=== PATIENT | male | born 1955 | race Caucasian/White ===

== ENCOUNTER 2019-02-23 08:38 | Day surgery (SDC) | payer MEDICAID ==
[~2019-02-23] VITALS: Ht 177.8 cm; Wt 74.1 kg
[2019-02-23] VITALS (11 sets, daily range): BP systolic 101–150; BP diastolic 47–86
[2019-02-23] MEDS ORDERED: TIOT4MIS5 INH (09:05)
[2019-02-23] MEDS ORDERED: GABA-532 PO (09:05)
[2019-02-23] MEDS ORDERED: normal saline 1000ml 1,000 ML IV PRN (09:05)
[2019-02-23] MEDS ORDERED: AMIT-189 PO (09:05)
[2019-02-23] MEDS ORDERED: FOLI0.4T2 PO (09:05)
[2019-02-23 09:32] LABS: BASOPHILS # (AUTO) 0.1 X10'3 (0-0.2); BASOPHILS % (AUTO) 0.8 % (0-1); EOSINOPHILS % (AUTO) 0.2 % (0-6); HEMATOCRIT 50.6 % (42.0-52.0); HEMOGLOBIN 17.7 g/dl (14.0-17.9); LYMPHOCYTES # (AUTO) 1.6 X10'3 (1.1-4.8); MEAN CORPUSCULAR HEMOGLOBIN 35.1 PG (27.0-31.0); MEAN CORPUSCULAR HGB CONC 35.1 g/dL (33.0-36.5); MEAN PLATELET VOLUME 9.4 FL (7.4-10.4); MONOCYTES # (AUTO) 1.2 X10'3 (0-0.9); MONOCYTES % (AUTO) 8.4 % (2-12); NEUTROPHILS # (AUTO) 11.7 X10'3 (1.8-7.7); NEUTROPHILS % (AUTO) 79.6 % (42-75); PLATELET COUNT 109 X10'3 (140-440); RED BLOOD COUNT 5.06 X10'6 (4.70-6.10); RED CELL DISTRIBUTION WIDTH 13.4 % (11.5-14.5); WHITE BLOOD COUNT 14.8 X10'3 (4.5-11.0)
[2019-02-23 09:36] LABS: ALBUMIN 3.5 G/DL (3.4-5.0); ANION GAP 9 (8-16); BLOOD UREA NITROGEN 27 MG/DL (7-18); BUN/CREATININE RATIO 17.6 (5.4-32.0); CALCIUM 9.2 MG/DL (8.5-10.1); CHLORIDE 92 MMOL/L (99-107); CREATININE 1.53 MG/DL (0.60-1.10); GLUCOSE 145 MG/DL (70-104); SODIUM 135 MMOL/L (135-145); TOTAL CARBON DIOXIDE 34.1 MMOL/L (24-32); eGFR 46 ML/MIN
[2019-02-23 09:38] LABS: POTASSIUM 2.7 MMOL/L (3.5-5.1)
[2019-02-23] MEDS ORDERED: potassium Cl 20 mEq SR tablet PO STA (09:42)
--- NOTE | 2019-02-23 09:43 | NUR ---
notified dr. mcneal of 2.7 potassium level, he stated to give 40meq kdur now, telephone order verified. Also notified him that white count is up to 14.8. No new orders other than potassium.
[2019-02-23] MEDS ORDERED: fentaNYL/PF 50MCG/1 ML 2ML syringe IV PRN (10:00)
[2019-02-23] MEDS ORDERED: midazolam 2 mg/2 ml injection IV PRN (10:00)
[2019-02-23] MEDS ORDERED: LIDOcaine 1%/PF 5ML 10 MG/ML VIAL SQ ONE (10:00)
[2019-02-23] MEDS ORDERED: midazolam 2 mg/2 ml injection ONE (10:14)
[2019-02-23] MEDS ORDERED: fentaNYL/PF 50MCG/1 ML 2ML syringe ONE (10:15)
== END 2019-02-23 12:10 | disposition home or self-care (01) ==
LOC: SSTAY O 08:38
PROVIDERS: ATTEND Radiology Vascular & Interventional Radiology
DX: M51.84 Other intervertebral disc disorders, thoracic region (principal); C41.2 Malignant neoplasm of vertebral column; G62.9 Polyneuropathy, unspecified; J44.9 Chronic obstructive pulmonary disease, unspecified; Z98.890 Other specified postprocedural states; Z79.01 Long term (current) use of anticoagulants; Z79.899 Other long term (current) drug therapy
CPT/HCPCS: 20206; 36415; 77012; 80048; 85025; 85610; 99152; 99153; J2250; J3010; J7030